=== PATIENT | female | born 1995 | race Caucasian/White ===

== ENCOUNTER 2016-10-03 00:26 | Emergency (ER) | payer OTHER ==
[2016-10-03 01:58] VITALS: BP 98/53
--- NOTE | 2016-10-03 02:12 | ED Physician Documentation ---
General Adult - HISTORIAN Historian: patient - HPI Stated Complaint: anxiety attack Chief Complaint: General Adult Additional Information: anxiety for last 2 weeks, soa, nervous, not sleeping Onset: days ago (14) Timing: still present, better (in er) Severity: moderate Modifying Factors: stress factors at home, new parent Context: not sleeping through night because of child Quality: mild Further Comments: no - ROS CONST: no problems EYES/ENT: none CVS/RESP: shortness of breath (intermittant) GI/: none MS/SKIN/LYMPH: none NEURO/PSYCH: dizziness (occasional) - PAST HX Past History: other (anxiety, depression) Surgeries/Procedures: Immunizations: referred to PCP Allergies/Adverse Reactions: Allergies Allergy/AdvReac Type Severity Reaction Status Date / Time azithromycin AdvReac Intermediate Nausea/Vomi Verified 10/03/16 00:46 [From Zithromax Z-Aldair] ting Home Medications: Ambulatory Orders Medication Instructions Recorded NK [NK] 11/22/15 - SOCIAL HX Smoking History: cigarettes Alcohol Use: none Drug Use: none - FAMILY HX Family History: Yes - VITAL SIGNS Vital Signs: Vital Signs Temp Pulse Resp BP Pulse Ox 66 16 98/53 99 10/03/16 01:45 10/03/16 01:45 10/03/16 01:45 10/03/16 01:45 - REVIEWED ASSESSMENTS Nursing Assessment Reviewed: Yes Vitals Reviewed: Yes Progress - Results/Orders Results/Orders: no testing ordered - Progress Progress: pt. stable entire time in er, no soa, no tachycardia Critical Care Note - Critical Care Note Total Time (mins): 0 ED Results Lab/Radiology - Lab Results Lab Results: none taken - Radiology Radiology Impressions: none taken General Adult Physical Exam - PHYSICAL EXAM GENERAL APPEARANCE: no distress EENT: eye inspection normal, ENT inspection normal, pharynx normal, no signs of dehydration, JEREMIAH, no nystagmus, TM's nml NECK: normal inspection, thyroid normal, supple RESPIRATORY: no resp distress, chest non-tender, breath sounds normal CVS: reg rate & rhythm, heart sounds normal, equal pulses, no murmur, no gallop , PMI nml, no JVD ABDOMEN: soft, no organomegaly, normal bowel sounds, no abdominal bruit, no distension, non-tender BACK: normal inspection, no CVA tenderness SKIN: warm/dry, normal color EXTREMITIES: non-tender, normal range of motion, no evidence of injury NEURO: oriented X3, CN's nml as tested, motor nml, sensation nml, mood/affect nml, cognition normal Discharge Clincal Impression: Anxiety Referrals: Patsy Jansen FNP [Primary Care Provider] - 2 Days Home Medications: Ambulatory Orders NK [NK] 11/22/15 Comments: discharged in stable condition to care of sister with script for phenergan 12.5 mg p.o. tid prn anxiety Condition: Stable Disposition: 01 HOME, SELF-CARE Decision to Admit: NO Decision Time: 01:35
== END 2016-10-03 01:45 | disposition home or self-care (01) ==
LOC: ED 00:26
DX: F41.9 Anxiety disorder, unspecified (principal); F17.210 Nicotine dependence, cigarettes, uncomplicated
CPT/HCPCS: 99282

== ENCOUNTER 2016-11-10 21:41 | Emergency (ER) | payer OTHER ==
--- NOTE | 2016-11-10 23:04 | ED Physician Documentation ---
Lower Extremity Injury - HISTORIAN Historian: patient - HPI Stated Complaint: Left foot pain Chief Complaint: Foot Injury Additional Information: Toes bent under foot last evening while playing with sister. Hurts across MTP's and over 4th MTP. - ROS CONST: no problems - PAST HX Past History: other ( x1) Allergies/Adverse Reactions: Allergies Allergy/AdvReac Type Severity Reaction Status Date / Time azithromycin AdvReac Intermediate Nausea/Vomi Verified 11/10/16 22:26 [From Zithromax Z-Aldair] ting Home Medications: Ambulatory Orders Medication Instructions Recorded Fluoxetine HCl [Fluoxetine HCl] 40 mg PO DAILY 11/10/16 - SOCIAL HX Smoking History: cigarettes - FAMILY HX Family History: no significant history - VITAL SIGNS Vital Signs: Vital Signs Temp Pulse Resp BP Pulse Ox 98.2 F 62 18 109/75 98 11/10/16 22:00 11/10/16 22:00 11/10/16 22:00 11/10/16 22:00 11/10/16 22:00 - REVIEWED ASSESSMENTS Nursing Assessment Reviewed: Yes Vitals Reviewed: Yes Progress - Progress Progress: 3 views of the left foot Clinical history: Left foot pain Findings: No acute fracture dislocation is identified. Alignment is normal. Some soft tissues are unremarkable. Impression:. Negative Electronically signed on Nov 10, 2016 10:59:38 PM CDT by: Ander Christie ED Results Lab/Radiology - Orders Orders: ED Orders Category Date Time Status FOOT COMPLETE [FOOT 3 VIEWS OR MORE] [RAD] Stat Exams 11/10/16 Taken Lower Extremities Injury Phy - Physical Exam General Appearance: no acute distress, alert Hips: bilateral hip: no evidence of injury Legs: bilateral: normal inspection, no evidence of injury Knees: bilateral: normal inspection, no evidence of injury Ankle: bilateral: normal inspection, no evidence of injury Foot: bilateral foot: normal inspection, no evidence of injury Gait: antalgic gait (mild) Neuro/Vascular/Tendon: no vascular compromise, motor nml, sensation nml Head/ENT: nml inspection Neck/Back: nml inspection Resp/CVS: no resp. distress Discharge Clincal Impression: Sprain of foot, left Qualifiers: Encounter type: initial encounter Qualified Code(s): S93.602A - Unspecified sprain of left foot, initial encounter Referrals: Patsy Jansen FNP [Primary Care Provider] - 2 Days Additional Instructions: Ice to the sore area for 30 minutes of each hour you are awake for 3 days. Tylenol 650 mg every 8 hours for 3 days. Home Medications: Ambulatory Orders Fluoxetine HCl [Fluoxetine HCl] 40 mg PO DAILY 11/10/16 Condition: Good Disposition: 01 HOME, SELF-CARE Decision to Admit: NO Decision Time: 23:00
[2016-11-10 23:13] VITALS: BP 122/76
--- NOTE | 2016-11-10 23:29 | Diagnostic Imaging Report ---
MEG LONG~ [facility] [address] [facility] [address] [place] [address]. [id number] ~ ~ ~ ~ Report Submission Date: Nov 10, 2016 10:59:38 PM CDT Patient ~ Study Name: FLOR MACHADO ~ Date: Nov 10, 2016 10:42:20 PM CDT ~ Modality Type: CR Gender: F ~ Description: LOWER EXTREMITY : 95 ~ Institution: [facility] Physician: MEG LONG ~ ~ ~ ~ 3 views of the left foot Clinical history: Left foot pain Findings: No acute fracture dislocation is identified. Alignment is normal. Some soft tissues are unremarkable. Impression:. Negative ~ Electronically signed on Nov 10, 2016 10:59:38 PM CDT by: Ander LOUIE
== END 2016-11-10 23:05 | disposition home or self-care (01) ==
LOC: ED 21:41
DX: S93.602A Unspecified sprain of left foot, initial encounter (principal); X58.XXXA Exposure to other specified factors, initial encounter; Y93.9 Activity, unspecified; Y99.9 Unspecified external cause status
CPT/HCPCS: 73630; 99283

== ENCOUNTER 2017-06-03 22:50 | Emergency (ER) | payer OTHER ==
[2017-06-03 23:13] VITALS: BP 124/62
[2017-06-03] MEDS ORDERED: CEPHALEXIN 250 MG CAPSULE PO ONE (23:25)
--- NOTE | 2017-06-03 23:32 | ED Physician Documentation ---
Skin Rash - HISTORIAN Historian: patient - HPI Stated Complaint: Possible spider bite Chief Complaint: Skin Rash Onset: hours Timing: still present Duration: persistent since (earlier today) Location: other (pubic area) Quality: painful Identified Cause?: No Where: home Context: Medication Exposure: none Context: Food Exposure: none Context: Other Exposure: other (pt. shaves pubic area) - ROS CONST: none CVS/RESP: none EYES/ENT: none GI/: none MS/SKIN/LYMPH: other (as above) NEURO/PSYCH: none - PAST HX Past History: other (IUP) Other History: other (anxiety, depresssion) Surgeries/Procedures: Yes (c-sect) Immunizations: referred to PCP Allergies/Adverse Reactions: Allergies Allergy/AdvReac Type Severity Reaction Status Date / Time azithromycin AdvReac Intermediate Nausea/Vomi Verified 06/03/17 23:13 [From Zithromax Z-Aldair] ting Home Medications: Ambulatory Orders Medication Instructions Recorded Promethazine HCl [Phenergan] 12.5 mg PO TID PRN 06/03/17 - SOCIAL HX Smoking History: cigarettes Alcohol Use: none Drug Use: none - FAMILY HX Family History: none - VITAL SIGNS Vital Signs: Vital Signs Temp Pulse Resp BP Pulse Ox 98.7 F 86 16 124/62 97 06/03/17 23:00 06/03/17 23:00 06/03/17 23:00 06/03/17 23:00 06/03/17 23:00 - REVIEWED ASSESSMENTS Nursing Assessment Reviewed: Yes Vitals Reviewed: Yes Progress - Results/Orders Results/Orders: no testing ordered - Progress Progress: pt. given 1000 mg Keflex p.o. in ER. Critical Care Note - Critical Care Note Total Time (mins): 0 ED Results Lab/Radiology - Lab Results Lab Results: none taken - Radiology Radiology Impressions: none taken - Orders Orders: ED Orders Category Date Time Status Cephalexin [Keflex] Med 06/03/17 23:25 Once 1,000 mg PO NOW ONE Skin Rash Physical Exam - EXAM General Appearance: no acute distress Skin: warm,dry, tender indurated area (very small, open area in pubic area limited to 1 mm of erythema around a draining hair follicle) Location: other (focal) Character: asymmetric Symptoms: other (single infected hair follicle) Extremities: non-tender, nml ROM EENT: eyes nml inspection, lips nml, gums nml, pharynx nml Neck: trachea midline, no swelling Respiratory: no resp distress, chest non-tender, breath sounds normal CVS: reg. rate & rhythm, heart sounds nml Abdomen: non-tender, no organomegaly, nml bowel sounds Neuro/Psych: oriented x3, CN's nml as tested, motor nml, sensation nml, mood/ affect nml Discharge Clincal Impression: Folliculitis Referrals: Salomón Boudreaux MD [Primary Care Provider] - 2 Days Comments: Pt. discharged in stable condition with prescription for Keflex 500 mg #28 2 p.o. bid until gone, generic, no refill. Condition: Stable Disposition: 01 HOME, SELF-CARE Decision to Admit: NO Decision Time: 23:29
== END 2017-06-03 23:40 | disposition home or self-care (01) ==
LOC: ED 22:50
DX: L73.9 Follicular disorder, unspecified (principal)
CPT/HCPCS: 99282; 99283

== ENCOUNTER 2017-08-06 22:14 | Emergency (ER) | payer OTHER ==
[2017-08-06 22:30] VITALS: BP 103/69
--- NOTE | 2017-08-06 22:36 | ED Physician Documentation ---
Sore Throat/Dental Pain - HISTORIAN Historian: patient, friend - HPI Chief Complaint: Dental Pain Additional Information: pt here w/dental pain-thinks dry socket sy uti and 3mo 2wks pg-has been taking tylenol 3 w/o success wants checked for uti and dry socket and pain relief- something besides tylenol3. she also drinks 5-6 soda per day smokes cigaarettes. she had 5 teeth pulled upper front-sutures appear intact with no bleeding-all sockets appear to be sutured closed. we told would not be able to give stronger pain meds than tylenol no 3-she should check w/ ob doctor. she elects to "just go to [facility]" for the pain and the uti. she also relates 1 pk cigs per day. no exam but the dental area - ROS CONST: no problems (dental pain probable uti uterine ) - PAST HX Past History: other ([facility]) Other History: none Allergies/Adverse Reactions: Allergies Allergy/AdvReac Type Severity Reaction Status Date / Time azithromycin AdvReac Intermediate Nausea/Vomi Verified 08/06/17 22:24 [From Zithromax Z-Aldair] ting Home Medications: Ambulatory Orders Medication Instructions Recorded Acetaminophen with Codeine 1 each PO TID 08/06/17 [Tylenol with Codeine #4 Tablet] - SOCIAL HX Smoking History: greater than 1 pack/day Alcohol Use: none Drug Use: none - FAMILY HX Family History: No - VITAL SIGNS Vital Signs: Vital Signs Temp Pulse Resp BP Pulse Ox 124/62 06/03/17 23:00 - REVIEWED ASSESSMENTS Nursing Assessment Reviewed: Yes Vitals Reviewed: Yes Dental Pain Physical Exam - EXAM General Appearance: mild distress, moderate distress Neuro/Psych: other (pt says back pain and dentall pain. exam besides dental not done pt elects go to [facility]) Discharge Clincal Impression: dental pain uterine poss uti Referrals: Salomón Boudreaux MD [Primary Care Provider] - 2 Days Comments: pt ess left AMA. NO NARCOTIC PAIN MEDS IN ADDITION TO TYLENOL3. Condition: Fair Decision to Admit: NO Decision Time: 22:42
== END 2017-08-06 22:35 ==
LOC: ED 22:14
DX: K08.89 Other specified disorders of teeth and supporting structures (principal); Z33.1 Pregnant state, incidental
CPT/HCPCS: 99282

== ENCOUNTER 2017-08-18 22:25 | Emergency (ER) | payer OTHER ==
[2017-08-18] MEDS ORDERED: 0.9 % SODIUM CHLORIDE 1,000 ML IV ONE (22:35)
[2017-08-18] MEDS ORDERED: ONDANSETRON HCL/PF 4 MG/ 2ML VIAL IVP ONE (22:35)
[2017-08-18 23:09] LABS: BASOPHILS % 0.3 (0.0-1.5); EOSINOPHILS % 4.1 % (0.0-6.8); MEAN CORPUSCULAR HEMOGLOBIN 32.6 pg (28.0-34.0); MEAN CORPUSCULAR VOLUME 93.3 fl (80.0-100.0); MONOCYTES % 3.7 % (0.0-11.0)
[2017-08-18 23:25] LABS: eGFR (African) > 60; eGFR (Non-African) > 60
[2017-08-18] MEDS ORDERED: POTASSIUM CHLORIDE 20 MEQ TABLET.ER PO ONE (23:27)
--- NOTE | 2017-08-18 23:34 | ED Physician Documentation ---
General Adult - HISTORIAN Historian: patient - HPI Stated Complaint: diarrhea, nausea, cough Chief Complaint: General Adult Onset: hours Timing: still present Severity: moderate Further Comments: yes (Pt is a 22 yo female at 15 and 4/7 weeks who c/ o nausea, malaise. No complaints specific to . No dysuria.) - ROS CONST: other (malaise) EYES/ENT: none CVS/RESP: cough GI/: nausea, diarrhea (mild) MS/SKIN/LYMPH: none - PAST HX Past History: other (c-sec) Allergies/Adverse Reactions: Allergies Allergy/AdvReac Type Severity Reaction Status Date / Time azithromycin AdvReac Intermediate Nausea/Vomi Verified 08/18/17 23:01 [From Zithromax Z-Aldair] ting Home Medications: Ambulatory Orders Medication Instructions Recorded Pxg410/FA/Omega3/Dha/Fish Oil 1 each PO DAILY 08/18/17 [ Gummies] - SOCIAL HX Smoking History: cigarettes - FAMILY HX Family History: No - VITAL SIGNS Vital Signs: Vital Signs Temp Pulse Resp BP Pulse Ox 97.9 F 97 H 16 107/58 99 08/18/17 22:30 08/18/17 22:30 08/18/17 22:30 08/18/17 22:30 08/18/17 22:30 - REVIEWED ASSESSMENTS Nursing Assessment Reviewed: Yes Vitals Reviewed: Yes Progress - Progress Progress: u/a - neg NS 1 L IVF Zofran 4 mg IV improved ED Results Lab/Radiology - Lab Results Lab Results: Lab Results 08/18/17 08/18/17 22:50 22:50 WBC 10.10 K/ul K/ul (4.00-12.00) RBC 3.95 M/ul M/ul (3.90-5.20) Hgb 12.9 g/dL g/dL (12.0-16.0) Hct 36.8 % % (34.5-46.5) MCV 93.3 fl fl (80.0-100.0) MCH 32.6 pg pg (28.0-34.0) MCHC 34.9 g/dL g/dL (30.0-36.0) RDW 12.8 % % (11.3-14.3) Plt Count 245 K/mm3 K/mm3 (130-400) Neut % (Auto) 69.2 % % (39.0-79.0) Lymph % (Auto) 21.5 % % (16.0-50.0) [place] % (Auto) 3.7 % % (0.0-11.0) Eos % (Auto) 4.1 % % (0.0-6.8) Baso % (Auto) 0.3 (0.0-1.5) Neut # (Auto) 7.0 # k/uL # k/uL (1.4-7.7) Lymph # (Auto) 2.2 # k/uL # k/uL (0.6-4.0) [place] # (Auto) 0.4 # k/uL # k/uL (0.0-0.9) Eos # (Auto) 0.4 # k/uL # k/uL (0.0-0.6) Baso # (Auto) 0.0 # k/uL # k/uL (0.0-0.5) Reactive Lymphs % 1.2 % % (0.0-5.0) Reactive Lymphs # 0.1 # k/uL # k/uL (0.0-0.8) Sodium 139 mmol/L mmol/L (136-145) Potassium 3.1 mmol/L L mmol/L (3.5-5.1) Chloride 103 mmol/L mmol/L (98-107) Carbon Dioxide 24 mmol/L mmol/L (22-30) BUN 9 mg/dL mg/dL (7-17) Creatinine 0.50 mg/dL L mg/dL (0.52-1.04) Estimated Creat Clear 202 Est GFR ( Amer) > 60 (60 - ) Est GFR (Non-Af Amer) > 60 (60 - ) Glucose 83 mg/dL mg/dL (74-106) Calcium 9.1 mg/dL mg/dL (8.4-10.2) Total Bilirubin 0.6 mg/dL mg/dL (0.2-1.3) AST 14 U/L L U/L (15-46) ALT 20 U/L U/L (13-69) Alkaline Phosphatase 68 U/L U/L (38-126) Total Protein 6.8 g/dL g/dL (6.3-8.2) Albumin 4.0 g/dL g/dL (3.5-5.0) - Orders Orders: ED Orders Category Date Time Status Place IV Lock 1T Care 08/18/17 22:35 Active CBC/PLATELET/DIFF Routine Lab 08/18/17 22:50 Completed CMP Routine Lab 08/18/17 22:50 Completed URINALYSIS Routine Lab 08/18/17 Ordered 0.9 % Sodium Chloride [Normal Saline] 1,000 ml Med 08/18/17 22:35 Active IV Q1H Ondansetron HCl/Pf [Zofran 4 mg/2 ml] Med 08/18/17 22:35 Discontinued 4 mg IVP NOW ONE Potassium Chloride [Klor-Con M20] Med 08/18/17 23:27 Discontinued 20 meq PO NOW ONE General Adult Physical Exam - PHYSICAL EXAM GENERAL APPEARANCE: mild distress EENT: ENT inspection normal, pharynx normal NECK: normal inspection, supple RESPIRATORY: no resp distress, chest non-tender, breath sounds normal CVS: reg rate & rhythm, heart sounds normal ABDOMEN: soft, no organomegaly, normal bowel sounds, other (gravid) BACK: normal inspection, no CVA tenderness SKIN: warm/dry, normal color EXTREMITIES: non-tender, normal range of motion, no evidence of injury NEURO: oriented X3, motor nml, sensation nml Discharge Clincal Impression: mild hypokalemia, with 15 completed weeks gestation Referrals: Salomón Boudreaux MD [Primary Care Provider] - Condition: Good Disposition: 01 HOME, SELF-CARE Decision to Admit: NO Decision Time: 23:37
[2017-08-18 23:45] VITALS: BP 104/58
[2017-08-19 07:49] LABS: APPEARANCE,URINE CLOUDY (CLEAR); COLOR,URINE YELLOW (YELLOW)
[2017-08-19 07:50] LABS: OCCULT BLOOD,URINE NEGATIVE (NEGATIVE); PH URINE 6.5 (5.0 - 8.0); UROBILINOGEN URINE 0.2 Eu (0.2-1.0)
== END 2017-08-18 23:40 | disposition home or self-care (01) ==
LOC: ED 22:25
DX: E87.6 Hypokalemia (principal)
CPT/HCPCS: 80053; 81002; 85025; A9270; J2405; J7030; 99283; S1016

== ENCOUNTER 2017-10-23 20:54 | Emergency (ER) | payer OTHER, BC ==
--- NOTE | 2017-10-23 21:17 | ED Physician Documentation ---
Hand Injury - HISTORIAN Historian: patient, friend - [facility] Chief Complaint: Hand Injury Additional Information: slammed door on lt mid distal finger last noct tender w/ eccymosis--6mo pg desires no xray Onset: yesterday Where: home Severity: moderate Duration: persistent since Context: crush Location of Injury: L hand Modifying Factors: pain on movement (ant touch-very minimal swelling mild eccymosis) Further Comments: yes (6mo pg) - ROS CONST: no problems GI/: denies: problems urinating, nausea, vomiting NEURO: none CVS/RESP: none LNMP: EYES/ENT: none MS/SKIN/LYMPH: none - PAST HX Past History: Rt handed, other (dep anxiety) Immunizations: UTD Allergies/Adverse Reactions: Allergies Allergy/AdvReac Type Severity Reaction Status Date / Time azithromycin AdvReac Intermediate Nausea/Vomi Verified 08/18/17 23:01 [From Zithromax Z-Aldair] ting Home Medications: Ambulatory Orders Medication Instructions Recorded Pnv No.103/Folic/Om3s/Fish Oil 1 each PO DAILY 08/18/17 [ Gummies] - SOCIAL HX Smoking History: less than 1 pack/day Alcohol Use: none Drug Use: none - FAMILY HX Family History: no significant history - VITAL SIGNS Vital Signs: Vital Signs Temp Pulse Resp BP Pulse Ox 104/58 08/18/17 23:40 - REVIEWED ASSESSMENTS Nursing Assessment Reviewed: Yes Vitals Reviewed: Yes ED Results Lab/Radiology - Orders Orders: ED Orders Category Date Time Status Finger Splint 1T Care 10/23/17 21:06 Ordered Hand Injury Physical Exam - Exam General Appearance: mild distress Hand: tenderness, soft tissue tenderness, bony tenderness, limited ROM (slight but can flex at joint), pain. No: nml inspection, nail partial avulsion Wrist: normal inspection, non-tender Neuro: sensation nml, motor nml Vascular: no vascular compromise. No: abnml cap refill Tendons: tendon function nml Forearm/Elbow/Arm: uninjured above wrist Skin: warm/dry, cyanosis, mottled (eccymosis) Head/ENT: nml inspection Neck/Back: nml inspection Resp/CVS: chest non-tender, breath sounds nml, heart sounds nml, lungs clear, reg. rate & rhythm Abdomen: non-tender, no distention Discharge Clincal Impression: crush injury lt mid distal finger, uterine Referrals: Salomón Boudreaux MD [REFERRING] - 2 Days Additional Instructions: finger splint pt prefers no sray w/preg Condition: Good Disposition: 01 HOME, SELF-CARE Decision to Admit: NO Decision Time: 21:26
[2017-10-23 21:58] VITALS: BP 116/58
== END 2017-10-23 21:16 | disposition home or self-care (01) ==
LOC: ED 20:54
DX: S69.92XA Unspecified injury of left wrist, hand and finger(s), initial encounter (principal); W23.1XXA Caught, crushed, jammed, or pinched between stationary objects, initial encounter; Y93.9 Activity, unspecified; Y92.9 Unspecified place or not applicable; Y99.9 Unspecified external cause status; Z33.1 Pregnant state, incidental
CPT/HCPCS: 99282

== ENCOUNTER 2018-11-19 20:48 | Emergency (ER) | payer BC, OTHER ==
--- NOTE | 2018-11-19 21:30 | ED Physician Documentation ---
Upper Respiratory Symptoms - HISTORIAN Historian: patient - HPI Chief Complaint: Cough/ Upper Respiratory Additional Information: Patient is a 23-year-old female who presents to the ER with c/o cough, congestion, and sore throat. She states that symptoms started yesterday. She denies any chills; thinks she may have had a fever. Has had a little nausea and a productive cough with green sputum. She states that she has taken 10 tests and 4 were positive. Last menses > 1 mth ago. No contraceptive use. Onset: days ago Duration: constant Context: denies: recent foreign travel, insect bite(s) Severity: mild Associated Symptoms: fever, sore throat, productive cough. denies: chills Worsened by Deep Breath: No - ROS CONST/EYES: denies: weakness CVS/RESP: none LYMPH: denies: rash GI/: nausea NEURO/PSYCH: denies: dizziness MS/SKIN: denies: muscle aches - PAST HX Lung Disease: none PE Risk Factors: none Other History: other (depression) Surgeries/Procedures: Immunizations: UTD Allergies/Adverse Reactions: Allergies Allergy/AdvReac Type Severity Reaction Status Date / Time azithromycin AdvReac Intermediate Nausea/Vomi Verified 11/19/18 21:41 [From Zithromax Z-Aldair] ting Home Medications: Ambulatory Orders Medication Instructions Recorded Pnv No.103/Folic/Om3s/Fish Oil 1 each PO DAILY 08/18/17 [ Gummies] Amoxicillin/Potassium Clav 875 each PO BID #20 tablet 11/19/18 [Augmentin 875Mg/125Mg] - SOCIAL HX Smoking History: greater than 1 pack/day Alcohol Use: none Drug Use: none - FAMILY HX Family History: none - VITAL SIGNS Vital Signs: Vital Signs Temp Pulse Resp BP Pulse Ox 98.5 F 98 H 16 101/67 99 11/19/18 20:48 11/19/18 20:48 11/19/18 20:48 11/19/18 20:48 11/19/18 20:48 - REVIEWED ASSESSMENTS Nursing Assessment Reviewed: Yes Vitals Reviewed: Yes ED Results Lab/Radiology - Lab Results Lab Results: Lab Results 11/19/18 11/19/18 11/19/18 21:50 21:50 21:50 WBC 10.60 K/ul K/ul (4.00-12.00) RBC 4.36 M/ul M/ul (3.90-5.20) Hgb 13.9 g/dL g/dL (11.5-16.0) Hct 41.4 % % (34.5-46.5) MCV 95.0 fl fl (80.0-100.0) MCH 31.8 pg pg (28.0-34.0) MCHC 33.5 g/dL g/dL (30.0-36.0) RDW 13.2 % % (11.3-14.3) Plt Count 241 K/mm3 K/mm3 (130-400) Neut % (Auto) 60.0 % % (39.0-79.0) Lymph % (Auto) 26.5 % % (16.0-50.0) [place] % (Auto) 7.0 % % (0.0-11.0) Eos % (Auto) 5.9 % % (0.0-6.8) Baso % (Auto) 0.6 % % (0.0-1.5) Neut # (Auto) 6.4 # k/uL # k/uL (1.4-7.7) Lymph # (Auto) 2.8 # k/uL # k/uL (0.6-4.0) [place] # (Auto) 0.7 # k/uL # k/uL (0.0-0.9) Eos # (Auto) 0.6 # k/uL # k/uL (0.0-0.6) Baso # (Auto) 0.1 # k/uL # k/uL (0.0-0.5) Sodium 141 mmol/L mmol/L (137-145) Potassium 3.7 mmol/L mmol/L (3.5-5.1) Chloride 108 mmol/L H mmol/L (98-107) Carbon Dioxide 24 mmol/L mmol/L (22-30) BUN 11 mg/dL mg/dL (7-17) Creatinine 0.68 mg/dL mg/dL (0.52-1.04) Estimated Creat Clear 310 Est GFR ( Amer) > 60 (60 - ) Est GFR (Non-Af Amer) > 60 (60 - ) Glucose 86 mg/dL mg/dL (74-106) Calcium 8.9 mg/dL mg/dL (8.4-10.2) Total Bilirubin 0.5 mg/dL mg/dL (0.2-1.3) AST 16 U/L U/L (15-46) ALT 6 U/L L U/L (13-69) Alkaline Phosphatase 74 U/L U/L (38-126) Total Protein 6.8 g/dL g/dL (6.3-8.2) Albumin 4.1 g/dL g/dL (3.5-5.0) Serum HCG, Qual Negative (NEGATIVE) - Radiology Radiology Impressions: Examination: PA and lateral chest. History: Evaluate lung barnett. Comparison exam: None provided. Findings: PA and lateral views of the chest demonstrates a normal cardiac and mediastinal silhouette. No focal infiltrate. No blunting of the costophrenic margins. Osseous structures are appropriate for age. Impression: No acute pulmonary process. - Orders Orders: ED Orders Category Date Time Status CHEST 2VIEW [RAD] Stat Exams 11/19/18 Completed CBC/PLATELET/DIFF Stat Lab 11/19/18 21:50 Completed CMP Stat Lab 11/19/18 21:50 Completed SERUM HCG Stat Lab 11/19/18 21:50 Completed URINE HCG Stat Lab 11/19/18 Uncollected Amoxicillin/Potassium Clav [AUGMENTIN 875MG/125 mg Med 11/19/18 22:28 Discontinued Tablet] 1 each PO NOW ONE Upper Respiratory Symptoms - EXAM General Appearance: no acute distress, alert EENT: eyes nml inspection, nml ENT inspection, PERRL, ear nml, pharyngeal erythema, other (post nasal drainage) Neck: supple Respiratory: breath sounds nml Abdomen: nml bowel sounds CVS: heart sounds normal Skin: color nml, no rash, warm,dry Extremities: normal range of motion Neuro/Psych: oriented x3, neuro intact, mood/affect nml Discharge Clincal Impression: Upper respiratory infection Prescriptions: Amoxicillin/Potassium Clav [Augmentin 875Mg/125Mg] 875 each PO BID #20 tablet Referrals: Primary Doctor,No [Primary Care Provider] - 2 Days Additional Instructions: Take Augmentin 875 mg by mouth twice a day until gone Increase water intake Try hot tea with a tsp of honey to thin secretions Warm salt water gargles 4 times a day for sore throat Stop Smoking Follow up with PCP next week if no improvement Condition: Good Disposition: 01 HOME, SELF-CARE Decision to Admit: NO Decision Time: 22:35
[2018-11-19 22:02] LABS: BASOPHILS % 0.6 % (0.0-1.5); NEUTROPHILS # 6.4 # k/uL (1.4-7.7)
[2018-11-19 22:11] LABS: eGFR (Non-African) > 60
[2018-11-19] MEDS ORDERED: AMOXICILLIN/POT 875/125 1 EACH PO ONE (22:28)
--- NOTE | 2018-11-19 22:50 | Diagnostic Imaging Report ---
CARMEN PETERSEN [facility] [id number] [facility] [address] [place] [address]. [id number] Report Submission Date: Nov 19, 2018 10:41:16 PM CDT Patient Study Name: FLOR MACHADO Date: Nov 19, 2018 9:34:42 PM CDT Modality Type: DX Gender: F Description: CHEST 2VIEW : 89 Institution: [facility] Physician: CARMEN PETERSEN Examination: PA and lateral chest. History: Evaluate lung barnett. Comparison exam: None provided. Findings: PA and lateral views of the chest demonstrates a normal cardiac and mediastinal silhouette. No focal infiltrate. No blunting of the costophrenic margins. Osseous structures are appropriate for age. Impression: No acute pulmonary process. Electronically signed on Nov 19, 2018 10:41:16 PM CDT by: Nabil LOUIE
[2018-11-19 23:16] VITALS: BP 116/58
== END 2018-11-19 22:50 | disposition home or self-care (01) ==
LOC: ED 20:48
DX: J06.9 Acute upper respiratory infection, unspecified (principal)
CPT/HCPCS: 71046; 80053; 81025; 84703; 85025; 99283; 99284

== ENCOUNTER 2019-01-23 18:47 | Emergency (ER) | payer BC, OTHER ==
[2019-01-23 19:16] VITALS: BP 119/81
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
== END 2019-01-23 20:09 | disposition home or self-care (01) ==
LOC: ED 18:47
DX: S63.91XA Sprain of unspecified part of right wrist and hand, initial encounter (principal); V43.52XA Car driver injured in collision with other type car in traffic accident, initial encounter
CPT/HCPCS: 73090; 73110; 99281; 99282

== ENCOUNTER 2019-01-30 18:28 | Emergency (ER) | payer BC, OTHER ==
[2019-01-30] MEDS: KETOROLAC TROMETHAMINE 60 MG/2 ML VIAL IM ONE (18:51)
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
[2019-01-30 19:03] VITALS: BP 123/73
== END 2019-01-30 19:05 | disposition home or self-care (01) ==
LOC: ED 18:28
DX: M77.9 Enthesopathy, unspecified (principal)
CPT/HCPCS: 96372; 99283; 99284; J1885